=== PATIENT | female | born 1960 | race Caucasian/White ===

== ENCOUNTER 2017-06-17 15:02 | Emergency (ER) | payer BC ==
[~2017-06-17] VITALS: Ht 165.1 cm; Wt 105.0 kg
[~2017-06-17 15:02] MED LIST: ASPI81 PO; LISI-360 PO; PROP20TA24 PO; SIMV40TA OR
[2017-06-17 15:09] VITALS: BP 166/78; PULSE 79; RESP 16; TEMP 98.8; O2SAT 96
== END 2017-06-17 17:16 | disposition left against medical advice (07) ==
LOC: NED 15:02
DX: R51 Headache (principal)
CPT/HCPCS: 99281